=== PATIENT | male | born 1945 | race Caucasian/White ===

== ENCOUNTER 2020-10-20 01:04 | Observation (INO) | payer MEDICARE, MEDICAID, SELFPAY ==
[2020-10-20] VITALS (10 sets, daily range): BP systolic 111–173; BP diastolic 71–104; PULSE 57–90; RESP 16–26; TEMP 36.5–36.9; O2SAT 88–97; BMI 22.0; BMI 21.6
--- NOTE | 2020-10-20 01:13 | ECG_ITS ---
APPROVED REPORT Exam: Resting ECG HR:70 bpm ECG Measurements Heart Rate 70 AXES NC 124 P 29 QRSd 78 QRS 65 QT 428 T 89 QTc 462 Conclusion Normal sinus rhythm Low voltages with late r wave progression Abnormal ECG Electronically signed by : Sarthak Hernadez, 10/21/2020 07:13:09
--- NOTE | 2020-10-20 01:13 | HMH.EDABDPAI ---
ED Disposition Clinical Impression: Urinary obstruction due to nodular prostate Urinary tract infection Qualifiers: Urinary tract infection type: acute cystitis Hematuria presence: with hematuria Qualified Code(s): N30.01 - Acute cystitis with hematuria Disposition: Admitted As Inpatient Condition on Discharge: Good Referrals: Provider,Referral, [Primary Care Provider] - Time of Disposition: 04:45 - Critical Care Critical Care Time: No Attestation: On , the high probability of a clinically significant, sudden or life threatening deterioration of the following system(s) required my full and direct attention, intervention and personal management. The time I documented below is in addition to time spent performing reported procedures but includes the following listed in this critical care notation. Medical Decision Making - Medical Records Medical records reviewed: Yes: I reviewed the patient's medical records. - Roel Inquiry Pt receiving controlled substance: No Vital Signs: 10/20/20 01:05 10/20/20 01:35 10/20/20 02:00 Temperature 97.8 F Temperature Source Oral Pulse Rate 75 72 Pulse Rate [Right] 57 L Respiratory Rate 26 H Blood Pressure 159/86 H 152/92 H Blood Pressure [Right Arm] 173/102 H Blood Pressure Mean 99 Blood Pressure Mean [Right Arm] 125 02 Sat by Pulse Oximetry 97 91 L 92 L Oxygen Delivery Method Oxygen Flow Rate (LPM) 10/20/20 03:22 10/20/20 03:36 10/20/20 04:01 Temperature Temperature Source Pulse Rate 72 78 78 Pulse Rate [Right] Respiratory Rate Blood Pressure 160/98 H 148/96 H 158/104 H Blood Pressure [Right Arm] Blood Pressure Mean 110 116 Blood Pressure Mean [Right Arm] 02 Sat by Pulse Oximetry 92 L 93 L 94 L Oxygen Delivery Method Room Air Room Air Oxygen Flow Rate (LPM) 10/20/20 04:30 Temperature Temperature Source Pulse Rate 82 Pulse Rate [Right] Respiratory Rate Blood Pressure 151/95 H Blood Pressure [Right Arm] Blood Pressure Mean 113 Blood Pressure Mean [Right Arm] 02 Sat by Pulse Oximetry 88 L Oxygen Delivery Method Nasal Cannula Oxygen Flow Rate (LPM) 2 - Lab Data Lab Results 10/20/20 01:20: WBC 11.7 H, RBC 5.71, Hgb 18.0, Hct 54.4 H, MCV 95.2 H, MCH 31.5 H, MCHC 33.1, RDW 12.9, Plt Count 358, MPV 8.2, Neut % (Auto) 81.7 H, Lymph % (Auto) 11.7, [place] % (Auto) 5.0, Eos % (Auto) 1.1, Baso % (Auto) 0.5, Neut # (Auto) 9.6 H, Lymph # (Auto) 1.4, [place] # (Auto) 0.6, Eos # (Auto) 0.1, Baso # (Auto) 0.1 10/20/20 01:20: Sodium 141, Potassium 4.3, Chloride 103, Carbon Dioxide 28, Anion Gap 14.3, BUN 26 H, Creatinine 1.20, Estimated Creat Clear 48, Estimated GFR 59, Est GFR ( Amer) 71, Glucose 137 H, Calcium 9.6, Total Bilirubin 0.5, AST 24, ALT 15, Alkaline Phosphatase 127 H, Total Protein 8.2, Albumin 4.7, Globulin 3.5 H, Albumin/Globulin Ratio 1.3, Lipase 255 10/20/20 02:09: PT 11.8, INR 1.00 10/20/20 02:09: Lactate 1.3 10/20/20 03:30: Urine Color Yellow, Urine Appearance Sl cloudy, Urine pH 6.0, Ur Specific [place] 1.025, Urine Protein Negative, Urine Glucose (UA) Negative, Urine Ketones Negative, Urine Blood Trace-i, Urine Nitrate Negative, Urine Bilirubin Negative, Urine Urobilinogen 0.2, Ur Leukocyte Esterase 1+ A, Urine RBC 5-10, Urine WBC 20-50, Ur Squamous Epith Cells Occasional, Urine Bacteria 3+ Result diagrams: 10/20/20 01:20 10/20/20 01:20 Orders (Tests/Meds): ED MEDICATIONS Generic Name Dose Route Start Last Admin Trade Name Freq PRN Reason Stop Dose Admin Sodium Chloride 1,000 mls @ 999 mls/hr 10/20/20 03:15 10/20/20 03:18 Sod Chlor 0.9% 1000ml Bag IV 10/20/20 04:15 999 mls/hr .Q1H1M ASHU Administration Discontinued Medications Generic Name Dose Route Start Last Admin Trade Name Freq PRN Reason Stop Dose Admin Iopamidol 100 ml 10/20/20 03:22 10/20/20 03:23 Iopamidol-370 (76%);100ml Bottle IV 10/20/20 03:23 100 ml ONCE ONE Administration Ketorolac Trom
--- NOTE | 2020-10-20 01:14 | CT_ITS ---
PROCEDURE INFORMATION: Exam: CTA Abdomen and Pelvis With Contrast Exam date and time: 10/20/2020 1:14 AM Age: 75 years old Clinical indication: Abdominal pain; Generalized; Prior surgery; Surgery date: 6+ months; Surgery type: Appendix; Patient HX: Severe abdand back pain; Additional info: Mesenteric ischemia vs diverticulitis TECHNIQUE: Imaging protocol: Computed tomographic angiography of the abdomen and pelvis with contrast material. 3D rendering (Not supervised by radiologist): MIP and/or 3D reconstructed images were created by the technologist. Radiation optimization: All CT scans at this facility use at least one of these dose optimization techniques: automated exposure control; mA and/or kV adjustment per patient size (includes targeted exams where dose is matched to clinical indication); or iterative reconstruction. Contrast material: ISOVUE 370; Contrast volume: 100 ml; Contrast route: INTRAVENOUS (IV); COMPARISON: CR [id number] HIP LT 2-3V W/PELVIS IF PERFOR 12/30/2015 9:23 AM FINDINGS: Lungs: Severe centrilobular emphysematous changes are present. Aorta: There is mild ectasia of the aorta with mild atherosclerotic plaquing seen at the distal aorta extending into the common iliac arteries where there is low grade stenosis seen at the origin of the right common iliac artery. Atherosclerotic changes are generally mild. No evidence of dissection, aneurysm, thick stenosis or luminal irregularity is seen. The visualized portions of the inferior and superior mesenteric artery are unremarkable. Celiac trunk and mesenteric arteries: See Aorta finding. Renal arteries: No occlusion or significant stenosis. Right iliac arteries: No occlusion or significant stenosis. Left iliac arteries: No occlusion or significant stenosis. Liver: No mass. Gallbladder and bile ducts: Unremarkable. No calcified stones. No ductal dilation. Pancreas: Unremarkable. No mass. No ductal dilation. Spleen: Unremarkable. No splenomegaly. Adrenal glands: There is mild prominence of the adrenal glands bilaterally suggestive of adrenal hyperplasia. No focal nodularity or mass. Kidneys and ureters: See Urinary bladder finding. Stomach and bowel: Severe diverticulosis is present in the sigmoid colon. There is some associated mucosal thickening in the distal sigmoid colon secondary to these changes. However no substantial surrounding fatty induration or focal fluid collection is seen to suggest diverticulitis. Appendix: No evidence of appendicitis. The appendix is not well seen. Intraperitoneal space: Unremarkable. No free air. No significant fluid collection. Lymph nodes: Unremarkable. No enlarged lymph nodes. Urinary bladder: There is marked dilatation of the urinary bladder with multiple diverticula and trabeculation demonstrated. No associated hydronephrosis is seen. These findings are most consistent with bladder outlet obstruction. Reproductive: The prostate gland is markedly enlarged. Correlation with PSA level is suggested. Bones/joints: Mild degenerative osseous changes are seen. Soft tissues: Unremarkable. Other findings: Patient motion limits evaluation. IMPRESSION: 1. There is marked dilatation of the urinary bladder with multiple diverticula and trabeculation demonstrated. No associated hydronephrosis is seen. These findings are most consistent with bladder outlet obstruction. 2. There is mild ectasia of the aorta with mild atherosclerotic plaquing seen at the distal aorta extending into the common iliac arteries where there is low grade stenosis seen at the origin of the right common iliac artery. Atherosclerotic changes are generally mild. No evidence of
--- NOTE | 2020-10-20 01:15 | XR_ITS ---
PROCEDURE INFORMATION: Exam: XR Chest Exam date and time: 10/20/2020 1:15 AM Age: 75 years old Clinical indication: Patient HX: Abd and back pain for 1 day TECHNIQUE: Imaging protocol: XR of the chest. Views: 1 view. COMPARISON: No relevant prior studies available. FINDINGS: Lungs: Moderate emphysema is seen. Large bowl or blood in the left apex is seen. Increased interstitial markings in the lung bases are demonstrated and the appearance of chronic changes. An acute process cannot definitely be excluded including mild atelectasis. Pleural spaces: Unremarkable. No pleural effusion. No pneumothorax. Heart/Mediastinum: Unremarkable. No cardiomegaly. Vasculature: Mild aortic tortuosity and calcifications. Bones/joints: Unremarkable. IMPRESSION: Moderate emphysema is seen. Large bowl or blood in the left apex is seen. Increased interstitial markings in the lung bases are demonstrated and the appearance of chronic changes. An acute process cannot definitely be excluded including mild atelectasis.
[2020-10-20 01:59] LABS: Chloride 103 mmol/L (98-107)
[2020-10-20 02:00] LABS: Potassium 4.3 mmoL/L (3.5-5.1); Sodium 141 mmol/L (136-145)
[2020-10-20 02:02] LABS: Alanine Aminotransferase 15 U/L (12-78); Aspartate Amino Transferase 24 U/L (17-59); Blood Urea Nitrogen 26 mg/dl (9-20); Creatinine Clearance Estimated 48 mL/min (50-200); Estimated Glomerular Filt Rate 59 ml/min (>60); GFR (African American) 71 ML/MIN (>60)
[2020-10-20 02:03] LABS: Albumin Level 4.7 g/dl (3.5-5.0); Albumin/Globulin Ratio 1.3 (1.1-1.8); Alkaline Phosphatase 127 U/L (38-126); Anion Gap 14.3 mEq/L (5-15); Bilirubin,Total 0.5 mg/dl (0.2-1.3); Calcium 9.6 mg/dl (8.4-10.2); Carbon Dioxide 28 mmol/L (22.0-30.0); Globulin 3.5 g/dL (1.3-3.2); Glucose 137 mg/dl (74-100); Lipase 255 U/L (23-300); Total Protein,Serum 8.2 g/dl (6.3-8.2)
[2020-10-20 02:06] LABS: Basophils # 0.1 K/mm3 (0-0.2); Basophils % 0.5 % (0.1-2.0); Eosinophils # 0.1 K/mm3 (0.0-0.4); Eosinophils % 1.1 % (0.1-12.0); Hematocrit 54.4 % (42.0-52.0); Lymphocytes # 1.4 K/mm3 (0.7-4.5); Lymphocytes % 11.7 % (10-50); Mean Corpuscular HGB Conc 33.1 g/dL (31.8-35.4); Mean Corpuscular Hemoglobin 31.5 pg (27.0-31.2); Mean Corpuscular Volume 95.2 fl (80-94); Mean Platelet Volume 8.2 fl (7.4-10.4); Monocytes # 0.6 K/mm3 (0.1-1.0); Neutrophils # 9.6 K/mm3 (1.8-7.8); Neutrophils % 81.7 % (37.0-80.0); Platelet Count 358 K/mm3 (142-424); Red Blood Count 5.71 M/mm3 (4.60-6.20); Red Cell Distribution Width 12.9 % (11.5-17.5); White Blood Count 11.7 K/mm3 (4.8-10.8)
[2020-10-20 02:51] LABS: Lactic Acid 1.3 mmol/L (0.7-2.1)
[2020-10-20 02:53] LABS: Prothrombin Time 11.8 seconds (10.1-12.5)
[2020-10-20 03:45] LABS: Microscopic, Urine URINE MICROSCOPIC (MICROSCOPIC)
[2020-10-20 03:47] LABS: Appearance,Urine SL CLOUDY (Clear); Bilirubin,Urine Negative (Negative); Blood, Urine TRACE-I (Negative); Color,Urine YELLOW (Yellow); Glucose,Urine (UA) Negative (Negative); Ketones,Urine Negative (Negative); Leukocyte Esterase,Urine 1+ (Negative); Nitrate,Urine Negative (Negative); Protein,Urine Negative (Negative); Specific Gravity, Urine 1.025 (1.005-1.030); Urobilinogen,Urine 0.2 EU/dl (0.2)
[2020-10-20 03:58] LABS: Bacteria,Urine 3+ /lpf; Squamous Epithelial Cell,Urine Occasional #/hpf (0-5); WBC,Urine 20-50 #/hpf (0-3)
--- NOTE | 2020-10-20 04:30 | PC.NURSE ---
Dr Rodrigez speaking with Dr Kaufman for admission
--- NOTE | 2020-10-20 04:39 | PC.NURSE ---
Pt's O2 sats decreased into the 80's 2 L/M NC placed on pt
--- NOTE | 2020-10-20 05:25 | PC.NURSE ---
patient up to floor via wheelchair.
[2020-10-20 07:46] LABS: Basophils % 0.2 % (0.1-2.0); Eosinophils % 0.1 % (0.1-12.0); Hematocrit 47.9 % (42.0-52.0); Lymphocytes # 0.7 K/mm3 (0.7-4.5); Lymphocytes % 5.8 % (10-50); Mean Corpuscular HGB Conc 33.2 g/dL (31.8-35.4); Mean Corpuscular Hemoglobin 31.5 pg (27.0-31.2); Mean Corpuscular Volume 94.7 fl (80-94); Mean Platelet Volume 7.8 fl (7.4-10.4); Monocytes # 0.6 K/mm3 (0.1-1.0); Monocytes % 4.5 % (1.7-9.3); Neutrophils # 11.3 K/mm3 (1.8-7.8); Neutrophils % 89.4 % (37.0-80.0); Platelet Count 317 K/mm3 (142-424); Red Blood Count 5.06 M/mm3 (4.60-6.20); Red Cell Distribution Width 13.1 % (11.5-17.5); White Blood Count 12.7 K/mm3 (4.8-10.8)
[2020-10-20 07:54] LABS: Blood Urea Nitrogen 20 mg/dl (9-20); Carbon Dioxide 26 mmol/L (22.0-30.0); Chloride 109 mmol/L (98-107); Creatinine Clearance Estimated 57 mL/min (50-200); Estimated Glomerular Filt Rate 72 ml/min (>60); GFR (African American) 88 ML/MIN (>60); Glucose 129 mg/dl (74-100); Magnesium 1.8 mg/dl (1.6-2.3); Sodium 139 mmol/L (136-145)
[2020-10-20 07:55] LABS: Calcium 8.3 mg/dl (8.4-10.2)
[2020-10-20 07:56] LABS: Hemoglobin 15.9 g/dL (14.1-18.0); MANUAL DIFFERENTIAL MANUAL DIFFERENTIAL (MANUAL DIFF)
[2020-10-20 08:24] LABS: Prostate Specific Ag, Diagnost 11.6 ng/ml (0.0-4.0)
--- NOTE | 2020-10-20 08:31 | HMH.PHAVTE ---
[facility] Pharmacy VTE Monitoring - Patient Demographics Admission date: 10/20/20 Report Date: 10/20/20 Time: 08:31 Allergies/Adverse Reactions: Patient Allergies No Known Drug Allergies Allergy (Unknown, Verified 01/06/18 11:03) Height: 1.73 m Weight: 64.609 kg Patient Problems: Current Active Problems Urinary obstruction due to nodular prostate (Acute) Urinary tract infection (Acute) - VTE Risk Labs: VTE Related Lab Results Hgb 15.9 g/dL (14.1-18.0) D 10/20/20 06:47 Hct 47.9 % (42.0-52.0) 10/20/20 06:47 Plt Count 317 K/mm3 (142-424) 10/20/20 06:47 PT 11.8 seconds (10.1-12.5) 10/20/20 02:09 INR 1.00 (0.9-1.1) 10/20/20 02:09 BUN 20 mg/dl (9-20) 10/20/20 06:47 Creatinine 1.00 mg/dl (0.66-1.25) 10/20/20 06:47 Estimated Creat Clear 57 mL/min (50-200) 10/20/20 06:47 VTE Score: 2 VTE Risk Level: Low Risk - Prophylaxis Types of VTE Prophylaxis: TEDS Knee High Location of Applied Device: Bilateral Lower Extremeties (ANNITA HOSE ORDER PLACED.)
[2020-10-20 09:12] LABS: Lymphocytes % 5 % (10-50); Monocytes % 2 % (2-9); Neutrophils % 93 % (42-76); Platelet Estimate Normal; RBC Morphology Normal; Total Cells Counted 100
--- NOTE | 2020-10-20 11:36 | HMH.HPDC ---
General - General Admission date:: 10/20/20 Discharge date: 10/20/20 *Admission Date: 10/20/20 *Chief complaint: abdominal pain *History of present illness: Mr. Xavier is a 75-year-old male with history of BPH, tobacco use, COPD. Minimal outpatient care for several years now. He presented to the ER last night due to concern for severe abdominal pain and difficulty urinating. Has also had a couple days of nausea, chills but no frances fevers. Initial assessment in the ER showed concern for distended bladder on bedside ultrasound with a very large prostate. CTA was obtained that showed significant distention of bladder taking up major portion of the abdominal cavity, increased density in the lower bladder with enlarged prostate and prostatic calcifications. Treated with pain medication, Davila placed with 1.7 L drained in less than an hour after placement. Pain is improved somewhat with decompression. Patient treated with ceftriaxone due to concern for UTI on initial UA. Admitted overnight for further management and assessment. On eval this morning, patient continues to complain of some quinton pain, worse in the right side. Denies any vomiting or fever overnight. Tolerating clear liquid diet. Draining somewhat cloudy yellow urine in Davila. Son at bedside. Extensive discussion about prostate history and presentation symptoms. Denies chest pain, headache, confusion. Complains of poor sleep, persistent abdominal pain. Shortness of breath at baseline (extensive smoking history and on no regular inhalers for COPD) [facility] History I have reviewed the patient's past medical history: Yes Medical History: Reports:: Chronic Obstructive Pulmonary Disease (COPD), Hypertension Denies:: Diabetes Mellitus Type 1, Diabetes Mellitus Type 2 *Have you ever received a pneumonia vaccine?: No *Have you received a flu vaccine this season?: No Other Medical History: Reports: Arthritis Laterality Cases: Bilateral: Tonsillectomy Other Surgeries: Yes: Appendectomy Amputation: No Fractures: No - *Social History Last grade of school completed: High school graduate Smoking Status: Current some day smoker Tobacco Type: cigarettes # Packs/Day (cigarettes): 1 Alcohol Intake: never Substance Use Type: denies use *Occupational Status:: retired Household Members: none *Travel in the last 8 weeks: None Family Hx:: Non-contributory Review of Systems - Review of Systems Review of systems:: pertinent systems reviewed and negative unless documented below (14 point review of systems performed, pertinent positives and negatives as per HPI) Exam Vital signs and Labs for Last 24 Hours: Temp Pulse Resp BP Pulse Ox 98.5 F 90 22 124/73 92 L 10/20/20 08:00 10/20/20 08:00 10/20/20 08:00 10/20/20 08:00 10/20/20 08:00 Laboratory Results - last 24 hr 10/20/20 01:20: WBC 11.7 H, RBC 5.71, Hgb 18.0, Hct 54.4 H, MCV 95.2 H, MCH 31.5 H, MCHC 33.1, RDW 12.9, Plt Count 358, MPV 8.2, Neut % (Auto) 81.7 H, Lymph % (Auto) 11.7, [place] % (Auto) 5.0, Eos % (Auto) 1.1, Baso % (Auto) 0.5, Neut # (Auto) 9.6 H, Lymph # (Auto) 1.4, [place] # (Auto) 0.6, Eos # (Auto) 0.1, Baso # (Auto) 0.1 10/20/20 01:20: Sodium 141, Potassium 4.3, Chloride 103, Carbon Dioxide 28, Anion Gap 14.3, BUN 26 H, Creatinine 1.20, Estimated Creat Clear 48, Estimated GFR 59, Est GFR ( Amer) 71, Glucose 137 H, Calcium 9.6, Total Bilirubin 0.5, AST 24, ALT 15, Alkaline Phosphatase 127 H, Total Protein 8.2, Albumin 4.7, Globulin 3.5 H, Albumin/Globulin Ratio 1.3, Lipase 255 10/20/20 02:09: PT 11.8, INR 1.00 10/20/20 02:09: Lactate 1.3 10/20/20 03:30: Urine Color Yellow, Urine Appearance Sl cloudy, Urine pH 6.0, Ur Specific [place] 1.025, Urine Protein Negative, Urine Glucose (UA) Negative, Urine Ketones Negative, Urine Blood Trace-i, Urine Nitrate Negative, Urine Bilirubin Negative, Urine Urobilinogen 0.2, Ur Leukocyte Esterase 1+ A, Urine RBC 5-10, Urine WBC 20-50, Ur Squamous Epith Cells Occasional,
--- NOTE | 2020-10-20 13:12 | PC.NURSE ---
PT REFUSED TO SEE DR. CAMPBELL AND . DR. MEDINA ROUNDED ON PT AND STATED HE WAS OKAY WITH PT BEING DISCHARGED WITH THE [place] BUT HE WOULD NEED TO FOLLOW UP WITH HIM THIS WEEK. PT WAS GIVEN CATHETER INSTRUCTIONS, MEDICATION INSTRUCTIONS AND WAS INSTRUCTED TO CALL FOR FOLLOW UP WITH PCP OR . PT STATED HE WOULD FOLLOW UP WITH . PT WAS GIVEN A URINAL TO TAKE HOME AND A LEG BAG FOR [place]. PT STATED HE MORE THAN LIKELY WOULD NOT NEED THE LEG BAG B/C HE DOESN'T REALLY LEAVE THE HOUSE THAT OFTEN BUT WOULD LIKE TO HAVE IT JUST IN CASE. 400 ML'S UOP WAS EMPTIED FROM CATHETER BEFORE PT WAS DISCHARGED.
== END 2020-10-20 13:00 | disposition home or self-care (01) ==
LOC: ER 04:45 → 2ND 04:49
PROVIDERS: Admitting Provider Emergency Medicine; Emergency Provider Student in an Organized Health Care Education/Training Program; PCP Internal Medicine Adolescent Medicine; Visit Provider Emergency Medicine
DX: N39.0 Urinary tract infection, site not specified (principal); J44.9 Chronic obstructive pulmonary disease, unspecified; F17.210 Nicotine dependence, cigarettes, uncomplicated; N40.0 Benign prostatic hyperplasia without lower urinary tract symptoms; I10 Essential (primary) hypertension; M19.90 Unspecified osteoarthritis, unspecified site; N40.3 Nodular prostate with lower urinary tract symptoms; N13.8 Other obstructive and reflux uropathy
CPT/HCPCS: 71045; 74174; 80048; 80053; 81001; 83605; 83690; 83735; 84153; 85007; 85025; 85610; 87086; 87088; 93005; 96365; 96375; 99284; G0378; J2405; Q9967; U0003

== ENCOUNTER 2024-02-14 12:40 | Emergency (ER) | payer MEDICARE, MEDICAID, SELFPAY ==
[2024-02-14] VITALS (7 sets, daily range): BP systolic 106–128; BP diastolic 73–88; PULSE 66–82; RESP 18; TEMP 36.7; O2SAT 94–97; BMI 20.5
--- NOTE | 2024-02-14 12:45 | CT_ITS ---
FINAL REPORT CLINICAL HISTORY: Right sided deficits, acute on chronic FINDINGS: CT NECK ANGIO, WITHOUT AND WITH CONTRAST TECHNIQUE: Thin section axial CT with contrast with multiplanar 3D MIP reconstruction. This study was performed with techniques to keep radiation doses as low as reasonably achievable, (ALARA). Individualized dose reduction techniques using automated exposure control or adjustment of mA and/or kV according to the patient''s size were employed. NASCET criteria and technique was utilized during interpretation. FINDINGS: Aortic arch: Arch shows no significant narrowing. Great vessel origins are widely patent. Right carotid: No significant stenosis is seen of the cervical common or internal carotid artery. Left carotid: No significant stenosis is seen of the cervical common or internal carotid artery. Vertebrals: Left vertebral artery is dominant. No significant stenosis is present. IMPRESSION: No significant stenosis of the cervical carotid arteries This study was performed using automated techniques to achieve radiation exposure as low as reasonably Reviewed, Interpreted and Dictated by Jazmin Bains MD Transcribed by Karon Moyer Authenticated and [facility]
--- NOTE | 2024-02-14 12:45 | CT_ITS ---
FINAL REPORT CLINICAL HISTORY: Right sided deficits, acute on chronic STROKE FINDINGS: CTA HEAD TECHNIQUE: Thin section axial CT with contrast with 3D MIP reconstruction This study was performed with techniques to keep radiation doses as low as reasonably achievable, (ALARA). Individualized dose reduction techniques using automated exposure control or adjustment of mA and/or kV according to the patient''s size were employed. FINDINGS: There is edema in the left frontoparietal region and left temporal region. A ring-enhancing lesion is seen left parietal lobe measuring up to 22 mm. There is no obvious enhancing lesion in the left temporal lobe. Underlying lesion is suspected however. No aneurysm is seen. Major intracranial vessels are patent without significant stenosis. . IMPRESSION: Edema in the left frontoparietal region and left temporal region with ring-enhancing lesion in the left parietal lobe measuring up to 22 mm. No obvious enhancing lesion of the left temporal lobe but underlying lesion is suspected. This study was performed using automated techniques to achieve radiation exposure as low as reasonably achievable Reviewed, Interpreted and Dictated by Jazmin Bains MD Transcribed by Karon Moyer Authenticated and [facility]
--- NOTE | 2024-02-14 12:45 | XR_ITS ---
FINAL REPORT TECHNIQUE: Single view chest CLINICAL HISTORY: right sided weakness FINDINGS: A single view of the chest was obtained. The heart and mediastinum are within normal limits. There is emphysema. Right lower lobe density could represent mass or pneumonia. There is a small right pleural effusion. There is no pneumothorax. Osseous structures are unremarkable. IMPRESSION: Right lower lobe density which could represent mass or pneumonia. Small right pleural effusion. Reviewed, Interpreted and Dictated by Jazmin Bains MD Transcribed by Karon Moyer Authenticated and [facility]
--- NOTE | 2024-02-14 12:45 | CT_ITS ---
FINAL REPORT TECHNIQUE: Axial imaging of the head was obtained without contrast. This study was performed with techniques to keep radiation doses as low as reasonably achievable, (ALARA). Individualized dose reduction techniques using automated exposure control or adjustment of mA and/or kV according to the patient''s size were employed. CLINICAL HISTORY: Right sided deficits, acute on chronic FINDINGS: There is edema of the temporal and frontal parietal regions with mild sulcal effacement. There is mild midline shift to the right of 4 mm. There is no hemorrhage. IMPRESSION: Pattern and CTA findings suggestive of metastatic brain disease. Recommend MRI follow-up. Reviewed, Interpreted and Dictated by Jazmin Bains MD Transcribed by Karon Moeyr Authenticated and . [facility]
--- NOTE | 2024-02-14 12:48 | PC.NURSE ---
Dr. Ferguson at bedside for pt eval
--- NOTE | 2024-02-14 12:59 | CT_ITS ---
FINAL REPORT TECHNIQUE: Thin section axial CT with contrast with multiplanar reconstruction This study was performed with techniques to keep radiation doses as low as reasonably achievable, (ALARA). Individualized dose reduction techniques using automated exposure control or adjustment of mA and/or kV according to the patient's size were employed. CLINICAL HISTORY: Shortness of breath, Right sided weakness COMPARISON: None FINDINGS: Pulmonary vessels enhance in normal fashion without evidence of embolism. Thoracic aorta shows no dissection or aneurysm. Emphysema is noted. There is a right lower lobe mass measuring up to 7.1 cm. However, some of this density could be related to postobstructive pneumonia. There is a nonspecific subpleural nodule in the left upper lobe measuring 16 mm, best seen on image 34. There is no significant pleural effusion. There is no significant pericardial effusion. Right hilar adenopathy measures 4.0 x 3.6 cm. Subcarinal adenopathy measures 4.9 x 2.8 cm. There is right paratracheal adenopathy measuring 2.5 cm. Adenopathy to the contralateral mediastinum in the AP window measures up to 2.3 cm. 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 This may represent the source of brain lesions. No evidence of pulmonary embolism. Reviewed, Interpreted and Dictated by Jazmin Bains MD Transcribed by Oksana Priest Authenticated and [facility]
--- NOTE | 2024-02-14 13:19 | ECG_ITS ---
APPROVED REPORT Exam: Resting ECG HR:73 bpm ECG Measurements Heart Rate 73 AXES NJ 130 P 89 QRSd 91 QRS 76 QT 389 T 69 QTc 415 Conclusion Sinus rhythm Electronically signed by : TRAVIS GARCIA, 02/15/2024 16:31:59
[2024-02-14 13:27] LABS: Albumin Level 4.3 g/dl (3.5-5.0); Chloride 108 mmol/L (98-107); Sodium 139 mmol/L (136-145)
[2024-02-14 13:28] LABS: Potassium 4.7 mmoL/L (3.5-5.1)
[2024-02-14 13:30] LABS: Alanine Aminotransferase 18 U/L (12-78); Albumin/Globulin Ratio 1.2 (1.1-1.8); Alkaline Phosphatase 83 U/L (38-126); Anion Gap 6.7 mEq/L (5-15); Aspartate Amino Transferase 32 U/L (17-59); Blood Urea Nitrogen 18 mg/dl (9-20); Carbon Dioxide 29 mmol/L (22.0-30.0); Creatinine Clearance Estimated 44 mL/min (50-200); Estimated Glomerular Filt Rate 58 ml/min (>60); GFR (African American) 70 ML/MIN (>60); Globulin 3.5 g/dL (1.3-3.2); Total Protein,Serum 7.8 g/dl (6.3-8.2)
[2024-02-14 13:31] LABS: Calcium 9.8 mg/dl (8.4-10.2); Glucose 106 mg/dl (74-100)
[2024-02-14] MEDS: ASPIRIN 81MG CHEWABLE TABLET 324 MG PO (13:40)
--- NOTE | 2024-02-14 13:43 | PC.NURSE ---
Pt out of room with Rad for CT
--- NOTE | 2024-02-14 13:47 | HMH.EDGENADL ---
Discharge Plan Disposition Patient Disposition: Xfer Short-Term Hosp Chief Complaint: Weakness Prescriptions Prescriptions: No Action tamsulosin 0.4 mg capsule 0.4 mg PO DAILY Qty: 30 2RF Referrals Follow up/Referrals: Sarthak Hernadez MD [Primary Care Provider] - See instructions Clinical Impressions Clinical Impression: Intracranial mass, Lung cancer Print Language Print Language: Indonesian Discharge ED Provider: Luis Fernando Ferguson General Adult HPI General Chief complaint: Weakness Stated complaint: cant move right side of body Time Seen by Provider: 02/14/24 12:44 Mode of Arrival: Wheelchair Source of Information: Patient Limitations: No Limitations Description of Symptoms (Recalled from ER Triage Doc. by RN): Patient c/o of right sided weakness, dizziness & SOB x2 weeks. History of Present Illness HPI narrative: Please note that above description of symptoms, in this electronic medical record under categorization of recalled from ER triage doctor by RN are reflective of an initial nursing assessment, however, is not reflective of my full history and physical exam that was personally taken and clarified. Consequentially, this preceding description of symptoms, which may include the patient's categorized chief complaint in the EMR, do not reflect my personal clinical impression, and the ultimate description of history of present illness and patient stated complaints should be deferred to this section of the note. Unless stated otherwise or congruent with this section of the note, additional signs, symptoms, or incongruence should be interpreted as inaccurate with my clinical impression. Related Data Previous Rx's ?Medication ?Instructions ?Recorded tamsulosin 0.4 mg capsule 0.4 mg PO DAILY prostate #30 caps 11/21/21 Allergies Allergy/AdvReac Type Severity Reaction Status Date / Time No Known Drug Allergies Allergy Unknown Verified 01/06/18 11:03 [facility] Disclaimer: The information contained in this section may have been updated after the patient was seen, as this information can be updated by other users. Social History Smoking Status: Current every day smoker tobacco type: cigarettes packs per day: 1 alcohol intake: never substance use type: denies use current occupational status: retired Travel in the last 8 weeks: None household members: none ROS Obtained: Yes All systems reviewed & no additional complaints except as documented Physical Exam General General appearance: alert, in no apparent distress and other (Incredibly hard of hearing) Head Head exam: atraumatic and normocephalic Eye Eye exam: Present normal appearance, PERRL and EOMI ENT ENT exam: Present mucous membranes dry Neck Neck exam: Present normal inspection, full ROM and trachea midline; Absent meningismus or lymphadenopathy Chest Chest inspection: Present normal inspection Respiratory Respiratory exam: Present normal lung sounds bilaterally and other (Intermittent tachypnea); Absent respiratory distress, wheezes, stridor, accessory muscle use or prolonged expiratory phase Cardiovascular Cardiovascular exam: Present regular rate, normal rhythm and other (Pulses equal symmetric in upper and lower extremities); Absent systolic murmur Abdominal Exam Abdominal exam: Present soft; Absent distention, tenderness or pulsatile mass Extremities Exam Extremities exam: Absent edema Neurological Exam Neurological exam: Present alert, oriented X3, CN II-XII intact and other (Abnormal cerebellar exam. Abnormal Romberg, [id number] and [id number]-[id number] on the right. Right upper extremity drift.); Absent normal gait or motor sensory deficit Skin Skin exam: Present warm and dry; Absent diaphoresis or erythema Medical Decision Making Medical Records Medical records reviewed: Yes I reviewed the patient's medical records. Screening: Per USPSTF and CDC recommendations, given the prevalence of disease in our region, it is our hospital?s policy to screen for HIV and viral Hepatitis for all patients aged 18 and over and those with ongoing risk factors. Roel Inquiry Pt receiving controlled substance: No Roel was queried for this patient: No Vital Signs: 02/14/24 13:00 02/14/24 13:01 02/14/24 13:30 Pulse Rate 82 76 Respiratory Rate 18 Blood Pressure 119/86 120/88 Blood Pressure [Right Arm] 128/82 Blood Pressure Mean 98 Blood Pressure Mean [Right Arm] 97 02 Sat by Pulse Oximetry 95 97 95 Oxygen Delivery Method Room Air Room Air Room Air 02/14/24 14:25 02/14/24 14:37 Pulse Rate 74 66 Respiratory Rate Blood Pressure 125/85 125/85 Blood Pressure [Right Arm] Blood Pressure Mean Blood Pressure Mean [Right Arm] 02 Sat by Pulse Oximetry 94 L 95 Oxygen Delivery Method Room Air Room Air Lab Data Lab Results 02/14/24 13:11: WBC 8.8, RBC 5.47, Hgb 18.1 H, Hct 55.5 H, MCV 101.5 H, MCH 33.1 H, MCHC 32.6, RDW 13.7, Plt Count 331, MPV 8.9, Neut % (Auto) 70.1, Lymph % (Auto) 16.0, [place] % (Auto) 8.6, Eos % (Auto) 4.3, Baso % (Auto) 1.0, Neut # (Auto) 6.2, Lymph # (Auto) 1.4, [place] # (Auto) 0.8, Eos # (Auto) 0.4, Baso # (Auto) 0.1, Sodium 139, Potassium 4.7, Chloride 108 H, Carbon Dioxide 29, Anion Gap 6.7, BUN 18, Creatinine 1.20, Estimated Creat Clear 44, Estimated GFR 58 L, Est GFR ( Amer) 70, Glucose 106 H, Calcium 9.8, Total Bilirubin 1.0, AST 32, ALT 18, Alkaline Phosphatase 83, Total Protein 7.8, Albumin 4.3, Globulin 3.5 H, Albumin/Globulin Ratio 1.2 02/14/24 13:11 02/14/24 13:11 Orders (Tests/Meds): ED MEDICATIONS Generic Name Dose Route Start Last Admin Trade Name Frecaty PRN Reason Stop Dose Admin Sodium Chloride 10 ml 02/14/24 13:56 02/14/24 13:58 Sodium Chloride 0.9% 10ml Syr (Rad Only) IV 03/15/24 13:55 10 ml NEEDED PRN Administration Maintain IV Site Discontinued Medications Generic Name Dose Route Start Last Admin Trade Name Freq PRN Reason Stop Dose Admin Aspirin 324 mg 02/14/24 12:45 02/14/24 13:40 Aspirin 81mg Chewable Tablet PO 02/14/24 12:46 324 mg ONCE ONE Administration Dexamethasone Sodium Phosphate 10 mg 02/14/24 14:59 Dexamethasone 4mg/Ml 1ml Vial IV 02/14/24 15:00 ONCE ONE Iopamidol 80 ml 02/14/24 13:56 02/14/24 13:58 Iopamidol-370 (76%);100ml Bottle IV 02/14/24 13:57 80 ml ONCE ONE Administration Sodium Chloride 50 ml 02/14/24 13:56 02/14/24 13:58 0.9 % Sodium Chloride 50 Ml Vial IV 02/14/24 13:57 50 ml ONCE ONE Administration ORDERS Category Date Time Status CT angio abdomen pelvis Stat Cat Scan 02/14/24 14:[address] angio chest - dissection Stat Cat Scan 02/14/24 12:[address] angio head Stat Cat Scan 02/14/24 12:[address] angio neck Stat Cat Scan 02/14/24 12:[address] head/brain wo con Stat Cat Scan 02/14/24 12:45 Completed XR chest portable Stat Exams 02/14/24 12:45 Completed Complete Blood Count Auto Diff Stat Lab 02/14/24 13:11 Completed Comprehensive Metabolic Panel Stat Lab 02/14/24 13:11 Results HIV (1&2) Antibody Rapid Stat Lab 02/14/24 13:11 Received Hep C Ab with Reflex to RNA Stat Lab 02/14/24 13:11 Received Lipase Stat Lab 02/14/24 13:11 Received Magnesium Stat Lab 02/14/24 13:11 Received Troponin I Q3H Lab 02/14/24 16:00 Ordered Troponin I Q3H Lab 02/14/24 19:00 Ordered Troponin I Stat Lab 02/14/24 13:11 Results Medical Decision Narrative: 78-year-old male history of hypertension, COPD not on home oxygen presenting with multiple complaints. Patient states that he has had difficulty breathing on and off for the past few weeks. Family corroborates this history. States that he has been feeling weak, short of breath, lightheaded. This been going on for couple weeks as well. Patient states that over the past couple days, he has had trouble falling toward the right. States that he feels this mostly because of his balance, but denies falling and hitting his head. Family states that he acts like he does not know where his right arm or right leg are in space, and like he cannot control them. This is also been going on for a period of days to weeks. Unknown last known normal. History was obtained via conversation with patient and family. On arrival, patient hemodynamically stable, alert, oriented x4, appropriate, GCS 15, moving all extremities spontaneously, pupils equal and reactive to light. Full physical exam performed and significant for chronically ill-appearing male who is in no acute distress. Intermittently having tachypnea, not sustained. Cardiac exam within normal limits. No focal breath sounds. Neurologic exam notable for right upper extremity and right lower extremity drift, abnormal finger-nose and [id number]-hl-sslw testing. No sensation or motor deficits otherwise. Differential includes CVA, intracranial hemorrhage, intracranial mass, metabolic abnormality, hyper versus hypoglycemia, dissection, ACS, PA, malignant arrhythmia, among other. Patient placed on continuous cardiac monitoring and continuous pulse ox with initial blood pressure 119/86, heart rate 82, saturation 95% on room air. Independent interpretation of EKG shows sinus rhythm with sinus arrhythmia ventricular rate 73 beats minute. KS 130, QRS 91, QTc 415. Patient was given fluid bolus for symptomatic management and correction of underlying abnormalities. Workup independently interpreted and significant for nonactionable hematologic labs. On independent interpretation of imaging, patient has significant cerebral edema left hemisphere and frontal lobe concerning for large old infarct versus mass with cerebral edema. Radiology read confirmed 22 mm mass with surrounding vasogenic edema. Given 10 mg Decadron for this 4 mm midline shift left direct see radiology read for full review of final results. Independent rotation of CT angiogram of the chest abdomen pelvis with right-sided lung cancer with mediastinal lymphadenopathy. Patient's abdominal exam with massive bladder distention secondary to likely BPH. See radiology read for final interpretations. Prior to reads, neurosurgery at [facility] was contacted and case was discussed at length. Images were power shared. Because patient high risk for clinical decompensation if discharged, deemed appropriate for transfer and inpatient admission. Results were relayed to patient who voiced understanding and patient was agreeable to transfer, inpatient admission, and management. Patient was graciously accepted and transferred to for further definitive management, under Dr. Shearer. Licensed Embalmer disclaimer Much of this encounter note is an electronic lens coating technician spoken language to printed text. Electronic lens coating technician of the spoken language may permit errors. Although I have reviewed the note, some errors may still exist. Critical Care Critical Care Time Critical Care Time: Yes (neurologic) Attestation: On 02/14/24, the high probability of a clinically significant, sudden or life threatening deterioration of the following system(s) required my full and direct attention, intervention and personal management. The time I documented below is in addition to time spent performing reported procedures but includes the following listed in this critical care notation. Total Time Total Critical Care Time: 45
[2024-02-14] MEDS: SODIUM CHLORIDE 0.9% 10ML SYR (RAD ONLY) 10 ML IV (13:58)
[2024-02-14] MEDS: IOPAMIDOL-370 (76%);100ML BOTTLE 80 ML IV (13:58)
[2024-02-14] MEDS: 0.9 % SODIUM CHLORIDE 50 ML VIAL IV (13:58)
--- NOTE | 2024-02-14 14:01 | CT_ITS ---
FINAL REPORT TECHNIQUE: After the administration of intravenous contrast, axial images were obtained through the abdomen and pelvis by computed tomography. This study was performed with technique to keep radiation doses as low as reasonably achievable, (ALARA). Individualized dose reduction techniques using automated exposure control or adjustment of the MA and/or KV according to the patient's size were employed. CLINICAL HISTORY: falling to one side, SOA FINDINGS: Abdomen: The lung bases are clear. The liver is normal in size and attenuation. The spleen is unremarkable. There is bilateral adrenal enlargement, left greater than right. Left adrenal gland measures 21 x 14 mm which could be related to metastatic disease or adenomas. The pancreas is unremarkable. There are small left renal cysts. The aorta is normal in caliber. There is no mesenteric or retroperitoneal adenopathy. Pelvis: The appendix is not identified. The urinary bladder is severely distended extending into the abdomen. There are numerous urinary bladder diverticula with urinary bladder wall thickening. Prostate is significantly enlarged with lobulation extending to the urinary bladder. Findings may represent severe BPH or prostate neoplasm.. There is no free fluid or adenopathy. A large right hydrocele is noted of the right scrotum. IMPRESSION: Markedly distended urinary bladder with severe prostate enlargement, consider Davila catheter placement. Mild bilateral adrenal enlargement which may represent metastatic disease. Large right hydrocele. Reviewed, Interpreted and Dictated by Jazmin Bains MD Transcribed by Karon Moyer Authenticated and [facility]
--- NOTE | 2024-02-14 14:05 | PC.NURSE ---
Pt back in room from CT
[2024-02-14 14:32] LABS: Basophils # 0.1 K/mm3 (0-0.2); Eosinophils # 0.4 K/mm3 (0.0-0.4); Eosinophils % 4.3 % (0.1-12.0); Hematocrit 55.5 % (42.0-52.0); Lymphocytes # 1.4 K/mm3 (0.7-4.5); Mean Corpuscular HGB Conc 32.6 g/dL (31.8-35.4); Mean Corpuscular Hemoglobin 33.1 pg (27.0-31.2); Mean Corpuscular Volume 101.5 fl (80-94); Mean Platelet Volume 8.9 fl (7.4-10.4); Monocytes # 0.8 K/mm3 (0.1-1.0); Monocytes % 8.6 % (1.7-9.3); Neutrophils # 6.2 K/mm3 (1.8-7.8); Neutrophils % 70.1 % (37.0-80.0); Platelet Count 331 K/mm3 (142-424); Red Blood Count 5.47 M/mm3 (4.60-6.20); Red Cell Distribution Width 13.7 % (11.5-17.5); White Blood Count 8.8 K/mm3 (4.8-10.8)
[2024-02-14 14:36] LABS: Hemoglobin 18.1 g/dL (14.1-18.0)
--- NOTE | 2024-02-14 15:03 | PC.NURSE ---
Called [facility] per DR. Ferguson to consult [facility] surgeon about this patient. Images were powershared to, and [facility] advised they would call us back.
[2024-02-14 15:24] LABS: Lipase 102 U/L (23-300)
[2024-02-14] MEDS: DEXAMETHASONE 4MG/ML 1ML VIAL 10 MG IV (15:43)
[2024-02-14 16:04] LABS: Troponin I < 0.01 ng/ml (0.00-0.034)
--- NOTE | 2024-02-14 16:18 | PC.NURSE ---
Called EMS to advise them of this ALS transfer to . Advised they be up here shortly
[2024-02-15 01:41] LABS: HIV (1&2) Antibody Rapid NONREACTIVE (NONREACTIVE)
[2024-02-15 09:21] LABS: HCV Ab Non Reactive (Non Reactive)
== END 2024-02-14 17:02 | disposition short-term general hospital (02) ==
PROVIDERS: Emergency Provider Emergency Medicine; PCP Internal Medicine Adolescent Medicine
DX: R90.0 Intracranial space-occupying lesion found on diagnostic imaging of central nervous system (principal); C34.90 Malignant neoplasm of unspecified part of unspecified bronchus or lung; F17.210 Nicotine dependence, cigarettes, uncomplicated; J44.9 Chronic obstructive pulmonary disease, unspecified
CPT/HCPCS: 70450; 70496; 70498; 71045; 71275; 74174; 80053; 83690; 83735; 84484; 85025; 86803; 87389; 93005; 96374; 99291; J1100; Q9967

== ENCOUNTER 2024-02-25 09:14 | Emergency (ER) | payer MEDICARE, MEDICAID, SELFPAY ==
[2024-02-25 09:29] VITALS: BP 145/108; PULSE 80; RESP 22; TEMP 36.6; O2SAT 95; BMI 20.2
--- NOTE | 2024-02-25 09:38 | ED_ITS ---
Discharge Plan Disposition Patient Disposition: Home, Self-Care Condition: Good Prescriptions Prescriptions: New levofloxacin 750 mg tablet 750 mg PO DAILY 7 Days Qty: 7 0RF No Action tamsulosin 0.4 mg capsule 0.4 mg PO DAILY Qty: 30 2RF Referrals Follow up/Referrals: José Luis Oneil MD [Staff Physician] - See instructions Sarthak Hernadez MD [Primary Care Provider] - See instructions Activity Restrictions/Add. Instructions Additional Instructions/Restrictions: You were evaluated in the emergency department today. At this time, you dec lined lab evaluation or other workup. Your urine does have some bacteria, so we are prescribing you an antibiotic. Please take the full course as prescribed. Please follow-up closely with your primary care provider as well as your urologist. Return to the emergency department for new or worsening symptoms Clinical Impressions Clinical Impression: Acute on chronic urinary retention Urinary tract infection Qualifiers: Urinary tract infection type: acute cystitis Hematuria presence: with hematuria Qualified Code(s): N30.01 - Acute cystitis with hematuria Instructions Patient Instructions: DI for Urinary Tract Infection (UTI) Print Language Print Language: Indonesian Discharge ED Provider: Angelica Johnson General Adult HPI General Chief complaint: Urogenital-Male Stated complaint: needs a catheter Time Seen by Provider: 02/25/24 09:28 History of Present Illness HPI narrative: This patient is an 78-year-old male with a history of newly diagnosed malignancy as well as COPD, tobacco use disorder, and urinary retention requiring Walton catheter placement presenting to the emergency department for evaluation with concern for inability to urinate. Patient states that he removed his catheter because it was irritating him on Wednesday, and since then has had trouble peeing. He states as a result of this, he has abdominal distention, pelvic pain, and feels like he has fluid buildup on him because of inability to urinate. He is re questing walton catheter placement, but declines other workup or intervention at this time. Related Data Previous Rx's ?Medication ?Instructions ?Recorded tamsulosin 0.4 mg capsule 0.4 mg PO DAILY prostate #30 caps 11/21/21 levofloxacin 750 mg tablet 750 mg PO DAILY 7 days #7 tabs 02/25/24 Allergies Allergy/AdvReac Type Severity Reaction Status Date / Time No Known Drug Allergies Allergy Unknown Other Verified 02/25/24 09:42 [facility] Disclaimer: The information contained in this section may have been updated after the patient was seen, as this information can be updated by other users. Social History Smoking Status: Current every day smoker tobacco type: cigarettes packs per day: 1 alcohol intake: never substance use type: denies use current occupational status: retired Travel in the last 8 weeks: None household members: none Other Medical History Have you received the Flu Vaccine for this season: No Have you received the Pneumonia Vaccine: No ROS Obtained: Yes All systems reviewed & no additional complaints except as documented Physical Exam General General appearance: alert and in no apparent distress Comment: thin, frail, chronically ill appearing Head Head exam: atraumatic and normocephalic Eye Eye exam: Present normal appearance, PERRL and EOMI ENT ENT exam: Present normal exam, normal oropharynx, mucous membranes moist and normal external ear exam Neck Neck exam: Present normal inspection, full ROM and trachea midline; Absent tenderness Chest Chest inspection: Present normal inspection and symmetric chest wall rise; Absent tenderness Respiratory Respiratory exam: Present accessory muscle use, prolonged expiratory phase and other (tachypneic with prolonged expiratory phase, diminished breath sounds bilaterally); Absent wheezes or stridor Cardiovascular Cardiovascular exam: Present regular rate and normal rhythm Abdominal Exam Abdominal exam: Present soft, distention and tenderness (lower abdomen); Absent guarding, rebound or rigidity Extremities Exam Extremities exam: Present normal inspection, full ROM and normal capillary refill; Absent tenderness or edema Back Exam Back exam: Present normal inspection and full ROM; Absent tenderness Neurological Exam Neurological exam: Present alert, oriented X3, CN II-XII intact and normal gait; Absent motor sensory deficit Psychiatric Psychiatric exam: Present normal affect and normal mood Skin Skin exam: Present warm and dry Medical Decision Making Medical Records Medical records reviewed: Yes I reviewed the patient's medical records. Screening: Per USPSTF and CDC recommendations, given the prevalence of disease in our region, it is our hospital?s policy to screen for HIV and viral Hepatitis for all patients aged 18 and over and those with ongoing risk factors. Roel Inquiry Pt receiving controlled substance: No Vital Signs: 02/25/24 09:29 02/25/24 10:00 02/25/24 10:52 Temperature 97.9 F 97.9 F Temperature Source Oral Oral Pulse Rate 69 69 Pulse Rate [Left] 80 Respiratory Rate 22 20 Blood Pressure 129/88 135/97 H Blood Pressure [Right Arm] 145/108 H Blood Pressure Mean 109 Blood Pressure Mean [Right Arm] 120 Blood Pressure Source Automatic Cuff Blood Pressure Source [Right Arm] Automatic Cuff Blood Pressure Position [Right Arm] Sitting 02 Sat by Pulse Oximetry 95 94 L Oxygen Delivery Method Simple Mask Simple Mask Oxygen Flow Rate (LPM) 2 2 Lab Data Lab results reviewed: Yes I reviewed the patient's lab results. Lab Results 02/25/24 09:45: Urine Color Yellow, Urine Appearance Sl cloudy, Urine pH 6.0, Ur Specific [place] 1.025, Urine Protein Negative, Urine Glucose (UA) Negative, Urine Ketones Negative, Urine Blood 2+ A, Urine Nitrate Positive, Urine Bilirubin Negative, Urine Urobilinogen 0.2, Ur Leukocyte Esterase Negative, Urine RBC 10-20, Urine WBC Occasional, Ur Squamous Epith Cells None, Amorphous Sediment 2+, Urine Bacteria 1+ Orders (Tests/Meds): ED MEDICATIONS Discontinued Medications Generic Name Dose Route Start Last Admin Trade Name Freq PRN Reason Stop Dose Admin Lidocaine HCl 10 ml 02/25/24 10:11 02/25/24 09:50 Lidocaine 2% Urojet 10ml TP 02/25/24 10:12 10 ml ONCE ONE Administration ORDERS Category Date Time Status UA [Urinalysis and Microscopic] Stat Lab 02/25/24 09:45 Completed Medical Decision Narrative: In summary, this patient is a 78-year-old male presenting to the Emergency Department for evaluation of inability to urinate. Differential diagnoses considered include but are not limited to chronic urinary retention, BARRY, volume overload, CKD, CHF. Ruling out the most morbid conditions drove assessment. It should be noted patient's history includes COPD, new diagnosis of malignancy, and chronic urinary retention which are not at goal therapy. This complicates all aspects of care by increasing patient's risk for morbidity. I reviewed patient's past medical records and noted recent evaluation here at the end of January for urinary retention and diagnosis of masses. On exam, the patient is tachypneic with prolonged expiratory phase. He also has bladder distention with tenderness. patient refuses labs and workup though I advised him that his work of breathing concerns me. He states that once we get this urine off of him he will be able to breathe normal. He states that all he wants is a catheter and to go home. Bladder scan demonstrated greater than 1600 cc in the bladder, so Walton catheter was placed. Urine also sent and is concerning for potential infection with positive nitrates and bacteria. Given this, will treat with oral Levaquin. Urine culture was sent and is pending. Ultimately patient states he is feeling a lot better after Walton catheter placement and still declines any sort of lab evaluation. He had 1900 cc out initially but then no more urine out over the next hour. Given that he refuses other workup and labs, he was discharged via patient directed discharge. Instructions for close follow-up were given as well as instructions for strict return precautions. He was discharged with Walton catheter in place. Critical Care Critical Care Time Critical Care Time: No
[2024-02-25] MEDS: LIDOCAINE 2% UROJET 10ML 10 ML TP (09:50)
[2024-02-25 10:00] VITALS: BP 129/88; PULSE 69; O2SAT 94
--- NOTE | 2024-02-25 10:02 | PC.NURSE ---
Bladder scan yielded > 1609ml Dr. Johnson notified of this and ordered walton placement.
--- NOTE | 2024-02-25 10:04 | PC.NURSE ---
14f walton placed. mild amount of difficulty proceeding past the prostate. Pt and his son states pt has a hx of bladder cancer, BPH, and hx of difficult placement. There was small amount of gross hematuria after placement and then draining clear yellow urine well.
[2024-02-25 10:17] LABS: Microscopic, Urine URINE MICROSCOPIC (MICROSCOPIC)
[2024-02-25 10:36] LABS: Appearance,Urine SL CLOUDY (Clear); Bilirubin,Urine Negative (Negative); Blood, Urine 2+ (Negative); Color,Urine YELLOW (Yellow); Glucose,Urine (UA) Negative (Negative); Ketones,Urine Negative (Negative); Leukocyte Esterase,Urine Negative (Negative); Nitrate,Urine POSITIVE (Negative); Protein,Urine Negative (Negative); Specific Gravity, Urine 1.025 (1.005-1.030); Urobilinogen,Urine 0.2 EU/dl (0.2)
[2024-02-25 10:45] LABS: WBC,Urine Occasional #/hpf (0-3)
[2024-02-25 10:46] LABS: Amorphous Sediment,Urine 2+ /lpf; Bacteria,Urine 1+ /lpf
[2024-02-25 10:52] VITALS: BP 135/97; PULSE 69; RESP 20; TEMP 36.6; O2SAT 95
== END 2024-02-25 11:10 | disposition home or self-care (01) ==
PROVIDERS: Emergency Provider Emergency Medicine; PCP Internal Medicine Adolescent Medicine
DX: R33.9 Retention of urine, unspecified (principal); N30.01 Acute cystitis with hematuria
CPT/HCPCS: 51702; 81001; 99283